=== PATIENT | male | born 1955 | race Caucasian/White ===

== ENCOUNTER 2016-11-20 06:49 | Day surgery (SDC) | payer BC ==
[~2016-11-20] VITALS: Ht 177.8 cm; Wt 93.5 kg
[~2016-11-20 06:49] MED LIST: FLEXERIL10 MG PO; PREDNISONE10 MG PO; ULTRAM50 MG PO
[2016-11-20 07:00] VITALS: BP 160/90
[2016-11-20 07:02] VITALS: BP 153/65
[2016-11-20 11:59] VITALS: BP 143/86
== END 2016-11-20 15:30 | disposition home or self-care (01) ==
LOC: SDC 06:49 → 2EAST 06:50 → SDC 10:55 → 2EAST 15:30
DX: M51.16 Intervertebral disc disorders with radiculopathy, lumbar region (principal); M48.06 Spinal stenosis, lumbar region
CPT/HCPCS: 72020; 76000; G0378; J0131; J0690; J1100; J1170; J2250; J2405; J2710; J3010; J3480; J7120